=== PATIENT | male | born 1995 | race Two or more races ===

== ENCOUNTER 2025-05-24 15:57 | Emergency (ER) | payer BC, MEDICAID ==
[~2025-05-24] VITALS: Ht 182.9 cm; Wt 104.9 kg
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
[2025-05-24 16:45] LABS: Urine Protein, UAD Negative (Negative)
[2025-05-24 16:59] LABS: Hematocrit 41.3 % (41.0-53.0); Hemoglobin 13.8 g/dL (13.5-17.5); Mean Corpuscular Hemoglobin 28.9 pg (28.0-32.0); Mean Corpuscular Volume 86.5 fL (80.0-100.0); Nucleated Red Blood Cells % 0.1 %
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
[2025-05-24 17:15] LABS: Alkaline Phosphatase 87 U/L (46-116); Anion Gap 9 (5-15); BUN/Creatinine Ratio 9.9 (10.0-20.0); Blood Urea Nitrogen 10 mg/dL (9-23); Calcium 9.8 mg/dL (8.7-10.4); Carbon Dioxide 29 mmol/L (20-31); Chloride 104 mmol/L (98-107); Glucose 84 mg/dL (74-106); Potassium 4.0 mmol/L (3.5-5.1); Sodium 142 mmol/L (136-145); Total Protein 7.8 g/dL (5.7-8.2)
[2025-05-24 17:16] LABS: Alanine Aminotransferase 52 U/L (7-40); Albumin 5.0 g/dL (3.2-4.8); Bilirubin, Total 0.3 mg/dL (0.2-1.0); Creatine Kinase IFCC 197 U/L (46-171)
[2025-05-24] MEDS: SODIUM CHLORIDE 0.9% 1,000 ML IV ONE (18:19)
[2025-05-24 18:25] VITALS: BP 162/81; PULSE 65; RESP 17; TEMP 98.3; O2SAT 99
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
== END 2025-05-24 20:08 | disposition home or self-care (01) ==
LOC: ER 15:57
DX: S30.11XA Contusion of abdominal wall, initial encounter (principal); R42 Dizziness and giddiness; V89.2XXA Person injured in unspecified motor-vehicle accident, traffic, initial encounter; Y93.89 Activity, other specified; Y92.410 Unspecified street and highway as the place of occurrence of the external cause; Y99.8 Other external cause status
CPT/HCPCS: 36415; 70450; 74176; 80053; 81001; 82550; 83605; 84484; 85025; 96360; 99284; J7030